=== PATIENT | male | born 1935 | race Caucasian/White ===

== ENCOUNTER 2019-08-12 14:36 | Inpatient (IN) ==
[2019-08-12] MEDS ORDERED: Nitroglycerin 0.4 MG TAB.SUBL SL PRN (16:03)
[2019-08-12] MEDS: Apixaban 5 MG TABLET GTUBE SCH (18:49)
[2019-08-12] MEDS: Linezolid 600 MG TABLET PO SCH (20:59)
[2019-08-13] MEDS: Apixaban 5 MG TABLET GTUBE SCH ×2 (05:21→16:53)
[2019-08-13 05:41] LABS: Basophils % 0.5 %; Eosinophils # 0.2 K/mcL (0.0-0.6); Eosinophils % 2.8 %; Hematocrit 25.7 % (37.5-50.1); Hemoglobin 8.2 g/dL (12.9-16.9); Immature Granulocytes % 0.5 % (0-4); Lymphocytes # 0.4 K/mcL (0.6-4.6); Lymphocytes % 5.9 %; Mean Corpuscular HGB Conc 31.9 g/dL (31.6-35.5); Mean Corpuscular Hemoglobin 32.7 pg (28.0-33.3); Mean Corpuscular Volume 102.4 fL (83.0-100.0); Mean Platelet Volume 11.7 fL (9.4-12.4); Monocytes # 0.3 K/mcL (0.0-1.3); Monocytes % 4.3 %; Neutrophils # 5.2 K/mcL (1.6-8.9); Platelet Count 151 K/mcL (140-400); Red Blood Count 2.51 M/mcL (4.19-5.50); Red Cell Distribution Width 18.8 % (11.5-14.5); White Blood Count 6.1 K/mcL (4.3-11.1)
[2019-08-13 07:18] LABS: Prothrombin Time 22.4 Seconds (9.4-12.1)
[2019-08-13 07:21] LABS: Activated Partial Thrombo Time 35.1 Seconds (26.0-36.0)
[2019-08-13 07:34] LABS: BUN/Creatinine Ratio 14 (6-26); Blood Urea Nitrogen 9 mg/dL (8-23); Calcium 7.1 mg/dL (8.6-10.3); Carbon Dioxide 22 mEq/L (23-29); Chloride 109 mEq/L (98-107); Glucose 115 mg/dL (70-105); Osmolality,Calculated 284 (280-300); Potassium 3.5 mEq/L (3.5-5.1); Sodium 137 mEq/L (136-145); eGFR For African Americans > 60 (> 60); eGFR For Non-African Americans > 60 (> 60)
[2019-08-13] MEDS: Ferrous Sulfate Oral Soln 300 MG/5 ML UDC GTUBE SCH (10:16)
[2019-08-13] MEDS: Folic Acid 1 MG TABLET GTUBE SCH (10:17)
[2019-08-13] MEDS: Cholecalciferol (D-3) 1,000 UNIT (25MCG) TABLET PO SCH (10:17)
[2019-08-13] MEDS: Thiamine (B-1) 100 MG TABLET GTUBE SCH (10:17)
[2019-08-13] MEDS: Cyanocobalamin (B-12) 1,000 MCG TABLET GTUBE SCH (10:17)
[2019-08-13] MEDS: Aspirin 81 MG TAB.CHEW GTUBE SCH (10:17)
[2019-08-13] MEDS: Linezolid 600 MG TABLET PO SCH ×2 (10:18→20:47)
[2019-08-13] MEDS: Amoxicillin/Clavulanate 400 MG/5 ML UDC GTUBE SCH (16:53)
[2019-08-13] MEDS ORDERED: Amoxicillin/Clavulanate 400 MG/5 ML UDC GTUBE SCH (17:00)
[2019-08-13] MEDS: Lactobacillus 1 EACH CAP.SPRINK PO SCH (20:47)
[2019-08-14] MEDS: Apixaban 5 MG TABLET GTUBE SCH ×2 (05:04→17:58)
[2019-08-14 07:30] LABS: Basophils % 0.6 %; Eosinophils # 0.2 K/mcL (0.0-0.6); Eosinophils % 4.4 %; Hematocrit 25.9 % (37.5-50.1); Hemoglobin 8.3 g/dL (12.9-16.9); Immature Granulocytes % 0.6 % (0-4); Lymphocytes # 0.7 K/mcL (0.6-4.6); Lymphocytes % 13.3 %; Mean Corpuscular Hemoglobin 33.1 pg (28.0-33.3); Mean Corpuscular Volume 103.2 fL (83.0-100.0); Mean Platelet Volume 11.8 fL (9.4-12.4); Monocytes # 0.4 K/mcL (0.0-1.3); Monocytes % 7.6 %; Neutrophils # 3.7 K/mcL (1.6-8.9); Platelet Count 149 K/mcL (140-400); Red Blood Count 2.51 M/mcL (4.19-5.50); Segmented Neutrophils % 73.5 %
[2019-08-14 07:51] LABS: Alanine Aminotransferase 9 Units/L (7-52); Albumin 2.7 g/dL (3.5-5.7); Albumin/Globulin Ratio 1.3 (1.1-2.2); Alkaline Phosphatase 63 Units/L (34-104); Aspartate Amino Transferase 14 Units/L (13-39); BUN/Creatinine Ratio 17 (6-26); Bilirubin,Total 0.6 mg/dL (0.3-1.0); Blood Urea Nitrogen 11 mg/dL (8-23); Calcium 7.4 mg/dL (8.6-10.3); Carbon Dioxide 24 mEq/L (23-29); Chloride 111 mEq/L (98-107); Globulin 2.1 g/dL (2.4-3.5); Glucose 103 mg/dL (70-105); Osmolality,Calculated 290 (280-300); Phosphorous 1.1 mg/dL (2.7-4.5); Potassium 3.8 mEq/L (3.5-5.1); Sodium 140 mEq/L (136-145); Total Protein 4.8 g/dL (6.4-8.9); eGFR For African Americans > 60 (> 60); eGFR For Non-African Americans > 60 (> 60)
[2019-08-14 08:00] LABS: Thyroid Stimulating Hormone 5.288 mcIU/mL (0.340-5.600)
[2019-08-14 09:42] LABS: Folate 18.9 ng/mL (3.0-16.0)
[2019-08-14] MEDS: Ferrous Sulfate Oral Soln 300 MG/5 ML UDC GTUBE SCH (10:10)
[2019-08-14] MEDS: Folic Acid 1 MG TABLET GTUBE SCH (10:10)
[2019-08-14] MEDS: Lactobacillus 1 EACH CAP.SPRINK PO SCH (10:10)
[2019-08-14] MEDS: Aspirin 81 MG TAB.CHEW GTUBE SCH (10:11)
[2019-08-14] MEDS: Cyanocobalamin (B-12) 1,000 MCG TABLET GTUBE SCH (10:11)
[2019-08-14] MEDS: Cholecalciferol (D-3) 1,000 UNIT (25MCG) TABLET PO SCH (10:11)
[2019-08-14] MEDS: Linezolid 600 MG TABLET PO SCH ×2 (10:11→22:49)
[2019-08-14] MEDS: Thiamine (B-1) 100 MG TABLET GTUBE SCH (10:19)
[2019-08-14] MEDS: Amoxicillin/Clavulanate 400 MG/5 ML UDC GTUBE SCH ×2 (10:19→18:00)
[2019-08-14] MEDS: Lactobacillus 1 EACH CAP.SPRINK GTUBE SCH (22:48)
[2019-08-15] MEDS: Apixaban 5 MG TABLET GTUBE SCH ×2 (05:59→17:03)
[2019-08-15] MEDS: Cholecalciferol (D-3) 1,000 UNIT (25MCG) TABLET PO SCH (08:54)
[2019-08-15] MEDS: Aspirin 81 MG TAB.CHEW GTUBE SCH (08:54)
[2019-08-15] MEDS: Thiamine (B-1) 100 MG TABLET GTUBE SCH (08:54)
[2019-08-15] MEDS: Lactobacillus 1 EACH CAP.SPRINK GTUBE SCH ×2 (08:54→19:56)
[2019-08-15] MEDS: Ferrous Sulfate Oral Soln 300 MG/5 ML UDC GTUBE SCH (08:54)
[2019-08-15] MEDS: Amoxicillin/Clavulanate 400 MG/5 ML UDC GTUBE SCH ×2 (08:55→17:03)
[2019-08-15] MEDS: Linezolid 600 MG TABLET PO SCH ×2 (08:55→19:57)
[2019-08-15] MEDS: Cyanocobalamin (B-12) 1,000 MCG TABLET GTUBE SCH (08:55)
[2019-08-15] MEDS: Folic Acid 1 MG TABLET GTUBE SCH (08:55)
[2019-08-15] MEDS: Digoxin Oral Liquid 125 MCG/2.5 ML ORAL.SYG GTUBE SCH (11:54)
[2019-08-16 05:39] LABS: Basophils % 0.6 %; Eosinophils # 0.2 K/mcL (0.0-0.6); Eosinophils % 2.9 %; Hematocrit 28.5 % (37.5-50.1); Hemoglobin 9.1 g/dL (12.9-16.9); Immature Granulocytes % 0.5 % (0-4); Lymphocytes # 0.8 K/mcL (0.6-4.6); Lymphocytes % 12.4 %; Mean Corpuscular HGB Conc 31.9 g/dL (31.6-35.5); Mean Corpuscular Hemoglobin 33.1 pg (28.0-33.3); Mean Corpuscular Volume 103.6 fL (83.0-100.0); Mean Platelet Volume 12.1 fL (9.4-12.4); Monocytes # 0.5 K/mcL (0.0-1.3); Monocytes % 8.2 %; Neutrophils # 4.8 K/mcL (1.6-8.9); Platelet Count 150 K/mcL (140-400); Red Blood Count 2.75 M/mcL (4.19-5.50); Red Cell Distribution Width 19.4 % (11.5-14.5); Segmented Neutrophils % 75.4 %; White Blood Count 6.3 K/mcL (4.3-11.1)
[2019-08-16 05:58] LABS: BUN/Creatinine Ratio 22 (6-26); Blood Urea Nitrogen 14 mg/dL (8-23); Calcium 8.5 mg/dL (8.6-10.3); Carbon Dioxide 24 mEq/L (23-29); Chloride 106 mEq/L (98-107); Glucose 93 mg/dL (70-105); Osmolality,Calculated 284 (280-300); Phosphorous 2.2 mg/dL (2.7-4.5); Potassium 4.3 mEq/L (3.5-5.1); Sodium 137 mEq/L (136-145); eGFR For African Americans > 60 (> 60); eGFR For Non-African Americans > 60 (> 60)
[2019-08-16] MEDS: Apixaban 5 MG TABLET GTUBE SCH ×2 (05:58→17:54)
[2019-08-16] MEDS: Ferrous Sulfate Oral Soln 300 MG/5 ML UDC GTUBE SCH (09:42)
[2019-08-16] MEDS: Digoxin Oral Liquid 125 MCG/2.5 ML ORAL.SYG GTUBE SCH (09:42)
[2019-08-16] MEDS: Lactobacillus 1 EACH CAP.SPRINK GTUBE SCH ×2 (09:43→20:23)
[2019-08-16] MEDS: Cholecalciferol (D-3) 1,000 UNIT (25MCG) TABLET PO SCH (09:43)
[2019-08-16] MEDS: Aspirin 81 MG TAB.CHEW GTUBE SCH (09:43)
[2019-08-16] MEDS: Thiamine (B-1) 100 MG TABLET GTUBE SCH (09:43)
[2019-08-16] MEDS: Amoxicillin/Clavulanate 400 MG/5 ML UDC GTUBE SCH ×2 (09:43→17:55)
[2019-08-16] MEDS: Linezolid 600 MG TABLET PO SCH ×2 (09:44→20:23)
[2019-08-16] MEDS: Folic Acid 1 MG TABLET GTUBE SCH (09:44)
[2019-08-16] MEDS: Cyanocobalamin (B-12) 1,000 MCG TABLET GTUBE SCH (09:44)
[2019-08-17 07:07] LABS: BUN/Creatinine Ratio 23 (6-26); Blood Urea Nitrogen 16 mg/dL (8-23); Calcium 8.4 mg/dL (8.6-10.3); Carbon Dioxide 23 mEq/L (23-29); Chloride 104 mEq/L (98-107); Glucose 105 mg/dL (70-105); Magnesium 1.6 mg/dL (1.6-2.6); Osmolality,Calculated 278 (280-300); Phosphorous 2.7 mg/dL (2.7-4.5); Potassium 4.4 mEq/L (3.5-5.1); Sodium 133 mEq/L (136-145); eGFR For African Americans > 60 (> 60); eGFR For Non-African Americans > 60 (> 60)
[2019-08-17] MEDS: Digoxin Oral Liquid 125 MCG/2.5 ML ORAL.SYG GTUBE SCH (10:45)
[2019-08-17] MEDS: Ferrous Sulfate Oral Soln 300 MG/5 ML UDC GTUBE SCH (10:46)
[2019-08-17] MEDS: Aspirin 81 MG TAB.CHEW GTUBE SCH (10:46)
[2019-08-17] MEDS: Lactobacillus 1 EACH CAP.SPRINK GTUBE SCH ×2 (10:46→19:46)
[2019-08-17] MEDS: Thiamine (B-1) 100 MG TABLET GTUBE SCH (10:46)
[2019-08-17] MEDS: Cholecalciferol (D-3) 1,000 UNIT (25MCG) TABLET PO SCH (10:46)
[2019-08-17] MEDS: Cyanocobalamin (B-12) 1,000 MCG TABLET GTUBE SCH (10:47)
[2019-08-17] MEDS: Folic Acid 1 MG TABLET GTUBE SCH (10:47)
[2019-08-17] MEDS: Linezolid 600 MG TABLET PO SCH ×2 (10:54→19:47)
[2019-08-17] MEDS: Apixaban 5 MG TABLET GTUBE SCH ×2 (10:56→17:37)
[2019-08-17] MEDS: Amoxicillin/Clavulanate 400 MG/5 ML UDC GTUBE SCH ×2 (11:13→17:37)
[2019-08-18] MEDS: Apixaban 5 MG TABLET GTUBE SCH ×2 (05:08→19:34)
[2019-08-18] MEDS: Lactobacillus 1 EACH CAP.SPRINK GTUBE SCH ×2 (19:33→20:17)
[2019-08-18] MEDS: Amoxicillin/Clavulanate 400 MG/5 ML UDC GTUBE SCH (19:33)
[2019-08-18] MEDS: Ferrous Sulfate Oral Soln 300 MG/5 ML UDC GTUBE SCH (19:33)
[2019-08-18] MEDS: Aspirin 81 MG TAB.CHEW GTUBE SCH (19:33)
[2019-08-18] MEDS: Cholecalciferol (D-3) 1,000 UNIT (25MCG) TABLET PO SCH (19:34)
[2019-08-18] MEDS: Cyanocobalamin (B-12) 1,000 MCG TABLET GTUBE SCH (19:34)
[2019-08-18] MEDS: Linezolid 600 MG TABLET PO SCH ×2 (19:34→20:18)
[2019-08-18] MEDS: Folic Acid 1 MG TABLET GTUBE SCH (19:34)
[2019-08-18] MEDS: Thiamine (B-1) 100 MG TABLET GTUBE SCH (19:34)
[2019-08-18] MEDS: Digoxin Oral Liquid 125 MCG/2.5 ML ORAL.SYG GTUBE SCH (19:34)
[2019-08-19] MEDS: Apixaban 5 MG TABLET GTUBE SCH ×2 (05:46→17:14)
[2019-08-19] MEDS: Ferrous Sulfate Oral Soln 300 MG/5 ML UDC GTUBE SCH (09:22)
[2019-08-19] MEDS: Lactobacillus 1 EACH CAP.SPRINK GTUBE SCH (09:22)
[2019-08-19] MEDS: Digoxin Oral Liquid 125 MCG/2.5 ML ORAL.SYG GTUBE SCH (09:22)
[2019-08-19] MEDS: Thiamine (B-1) 100 MG TABLET GTUBE SCH (09:23)
[2019-08-19] MEDS: Cyanocobalamin (B-12) 1,000 MCG TABLET GTUBE SCH (09:23)
[2019-08-19] MEDS: Cholecalciferol (D-3) 1,000 UNIT (25MCG) TABLET PO SCH (09:23)
[2019-08-19] MEDS: Folic Acid 1 MG TABLET GTUBE SCH (09:23)
[2019-08-19] MEDS: Aspirin 81 MG TAB.CHEW GTUBE SCH (09:23)
[2019-08-19] MEDS: Linezolid 600 MG TABLET PO SCH (09:24)
[2019-08-19] MEDS: Amoxicillin/Clavulanate 400 MG/5 ML UDC GTUBE SCH (09:24)
[2019-08-19] MEDS ORDERED: ALPRAZolam 0.5 MG TABLET GTUBE ONE (23:34)
[2019-08-20] MEDS: Apixaban 5 MG TABLET GTUBE SCH (05:56)
[2019-08-20] MEDS: Ferrous Sulfate Oral Soln 300 MG/5 ML UDC GTUBE SCH (09:07)
[2019-08-20] MEDS: Folic Acid 1 MG TABLET GTUBE SCH (09:07)
[2019-08-20 09:08] VITALS: BP 129/79
[2019-08-20] MEDS: Thiamine (B-1) 100 MG TABLET GTUBE SCH (09:08)
[2019-08-20] MEDS: Cholecalciferol (D-3) 1,000 UNIT (25MCG) TABLET PO SCH (09:08)
[2019-08-20] MEDS: Aspirin 81 MG TAB.CHEW GTUBE SCH (09:08)
[2019-08-20] MEDS: Cyanocobalamin (B-12) 1,000 MCG TABLET GTUBE SCH (09:08)
== END 2019-08-20 12:50 | disposition home health service (06) | DRG 871 ==
LOC: INPPIK 17:00
PROVIDERS: ADMIT Internal Medicine; ATTEND Internal Medicine